=== PATIENT | male | born 1965 | race Caucasian/White ===

== ENCOUNTER 2021-02-22 14:44 | IRF | payer MEDICARE, SELFPAY ==
--- NOTE | ~2021-02-22 | MR_ITS ---
EXAMINATION: MR brain/brain stem wo/w con DATE: 03/03/2021 10:49 INDICATION: Stroke. Left facial weakness. TECHNIQUE: Magnetic resonance imaging (MRI) of the brain and brainstem was performed without and with 17 mL MultiHance intravenous contrast. Sequences included sagittal and axial T1-weighted FSE, axial diffusion-weighted FS EPI, axial T2*-weighted GRE, axial T2-weighted FLAIR Propeller, and axial T2-we ighted Propeller. Postcontrast sequences included axial and coronal T1-weighted FSE. Apparent diffusi on coefficient (ADC) maps were created. COMPARISON: Head CT 03/02/2021 FINDINGS: There are areas of increased T2-weighted signal intensity and contrast enhancement involvin g left temporal lobe and the left basal ganglia. There is focal decreased T2*weighted signal intensit y in the left lentiform nucleus, consistent with microhemorrhage. There is a small area of increased T2-weighted signal intensity and contrast enhancement in posterior right frontal lobe. These findings are consistent with subacute infarcts. There are scattered areas of nonspecific increased T2-weighte d signal intensity in the cerebral white matter, which is within normal limits for the patient's age. The ventricles are normal in size. There is near complete opacification of the left ethmoid sinuses. There is complete opacification of left maxillary sinus. The orbits are normal. The mastoid air cell s are normal. IMPRESSION: 1. Subacute infarcts involving the left temporal lobe, left basal ganglia, and posterior right fronta l lobe with small area of microhemorrhage in the left lentiform nucleus. Reviewed, dictated and finalized at location B. IMPRESSION: 1. Subacute infarcts involving the left temporal lobe, left basal ganglia, and posterior right frontal lobe with small area of microhemorrhage in the left ana tiform nucleus.
--- NOTE | ~2021-02-22 | XR_ITS ---
XR abdomen/kub 1V DATE: 02/22/2021 22:40 INDICATION: Nausea and vomiting TECHNIQUE: 2 portable supine AP views COMPARISON: None FINDINGS: Status post bilateral total hip arthroplasty. There is no evidence of bowel obstruction. No apparent intraperitoneal free air. The psoas shadows are intact. No visceromegaly or significant abnormal abdominal or pelvic calcificat ion is noted. IMPRESSION: Nonspecific abdomen; no evidence of bowel obstruction Reviewed, dictated and finalized at Location A. Reviewed, dictated and finalized at location A.
--- NOTE | ~2021-02-22 | CT_ITS ---
EXAMINATION: CTA brain DATE: 03/03/2021 13:15 INDICATION: Stroke. TECHNIQUE: Computed tomographic angiography (CTA) of the head was performed without and with 100 mL O mnipaque-350 intravenous contrast. Automated exposure control and iterative reconstruction technique were employed. The dose-length product was 935.90 mGy-cm. Maximum intensity projection 3D reconstruc tions were created. Volume-rendered 3D reconstructions of the intracranial arteries were created by t technologist on a separate workstation. COMPARISON: Head CT 03/02/2021 FINDINGS: There are low-attenuation infarcts involving the left temporal lobe, left basal ganglia, an d posterior right frontal lobe. A small area of density equal to keating matter in left lentiform nucleu s correlates with hemorrhage by MRI. There is no abnormal mass lesion. The ventricles are normal in s ize. The orbits are normal. There is mucosal thickening in the paranasal sinuses including complete o pacification of left maxillary sinus and the anterior left ethmoid sinuses. The orbits are normal. Th e mastoid air cells are normal. Left vertebral artery is dominant. There is no significant stenosis o f basilar artery or the posterior cerebral arteries. The posterior communicating arteries are normal. There is no significant stenosis of right internal carotid artery. There is total occlusion of left internal carotid artery with reconstitution in the cavernous segment. There is no significant stenosi s of the anterior or middle cerebral arteries. Anterior communicating artery is normal. There is no a neurysm. IMPRESSION: 1. Subacute infarcts involving the left temporal lobe, left basal ganglia, and posterior right fronta l lobe. Small area of subacute hemorrhage in infarct in the left lentiform nucleus. 2. Total occlusion of left internal carotid artery with reconstitution in the cavernous segment. Reviewed, dictated and finalized at location B. IMPRESSION: 1. Subacute infarcts involving the left temporal lobe, left basal ganglia, and posterior right frontal lobe. Small area of subacute hemorrhage in infarct in t he left lentiform nucleus. 2. Total occlusion of left internal carotid artery with reconstitution in the c avernous segment.
--- NOTE | ~2021-02-22 | XR_ITS ---
XR shoulder RT min 2V DATE: 02/23/2021 17:47 INDICATION: Right shoulder pain TECHNIQUE: 4 views COMPARISON: None FINDINGS: There is postsurgical change from right glenohumeral joint replacement. There is evidence o f rotator cuff atrophy or tear. No recent fracture or dislocation. No periosteal reaction or bone destruction or abnormal soft tissue calcification. IMPRESSION: Right glenohumeral joint replacement Probable rotator cuff atrophy or tear Reviewed, dictated and finalized at location A.
--- NOTE | ~2021-02-22 | CT_ITS ---
EXAMINATION: CT brain wo con DATE: 03/02/2021 12:02 INDICATION: Stroke with change in mental status. Left eye closed. TECHNIQUE: Computed tomography (CT) of the head was performed without intravenous contrast. Sagittal and coronal reconstructions were performed. The mA was adjusted according to patient size. Iterative reconstruction technique was employed. The dose-length product was 529.67 mGy-cm. COMPARISON: None FINDINGS: There is subtle asymmetric decreased attenuation of the left lentiform nucleus suspicious for age ind eterminate infarct. Additional more prominent decreased periventricular white matter hypoattenuation in the left temporal parietal region likely sequela of chronic small vessel ischemic disease. No acut e intracranial hemorrhage or abnormal extra axial fluid collection. Ventricles are normal and symmetr ic. No mass/mass effect. Prominent mucosal thickening in the visualized anterior left ethmoid air courtney ls. The orbits and mastoid air cells are normal. IMPRESSION: 1. Asymmetric subtle decreased attenuation of the left lentiform nucleus suspicious for infarct which could be acute. Dr. Law discussed these findings with Dr. Stanford at 12:[address] Inman at 12:12 PM. Reviewed, dictated and finalized at location A. IMPRESSION: 1. Asymmetric subtle decreased attenuation of the left lentiform nucleus suspic ious for infarct which could be acute. Dr. Law discussed these findings [facility] Dr. Stanford at 12:[address] Inman at 12:12 PM.
[2021-02-22 14:25] VITALS: BP 189/78; PULSE 70; RESP 18; TEMP 36.4; O2SAT 99
--- NOTE | 2021-02-22 15:21 | WPDREHABHP ---
H&P: HPI History of Present Illness Date/Time: 02/22/21 15:21 Chief Complaint: Left MCA infarct with right hemiplegia, dysarthria, aphasia, Narrative: HISTORY OF PRESENT ILLNESS: The patient's primary rehab impairment category is 0 1 stroke 01.2 right body involvement ( left brain) The etiologic diagnosis is left middle cerebral artery infarct I saw this patient [id number] on 02/22/2021 The patient is a 55-year-old male with past medical history of hyperlipidemia, anxiety, chronic pain, bilateral shoulder replacements, bilateral total hip replacements who presented to an outside hospital on 02/17/2021 with right-sided facial droop, right-sided weakness, and slurred speech. Initial NIH SS was 7. CT of the head showed hyperdense MCA. Patient was administered tPA and transferred to [facility] for further care. On arrival to [facility] NIHSS was 18. Repeat CT of the head showed a re- demonstrated left hyperdense MCA. CTA of the head and neck revealed a left ICA and the left M 1 occlusion. The patient underwent mechanical thrombectomy with TI CI 2B recannulization performed by Dr. Phan Contreras.. The patient was noted to have a left ICA stenosis likely to be the origin of his occlusion. A lleft ICA dissection occurred during the procedure. Patient was given aspirin 300 mg x 1 MRI was obtained that showed a left MCA territory diffusion restriction along with punctate right hemispheric areas of diffusion restriction. No hemorrhage noted. Patient was noted to have a left fluid collection to the maxillary sinus and ENT follow-up with Dr. Menezes on 03/09/2021 at for evaluation of sinusitis office #[id number] Therapy was initiated at the acute care facility and the patient transferred to us from [facility] on 02/22/21 COVID: The patient has not traveled outside the [place] or had contact with someone who is ill that his travel outside the [place] in the past 21 days. Patient has not traveled to an area of the [place] that is experiencing known transmission of the Coronavirus and has not had close personal contact with anyone that has had COVID. The patient does not have a fever nor experiencing lower respiratory illness symptoms. The patient had a negative COVID test on 02/21/2021 FALLS OR SURGERIES: The patient has had [no] major surgeries in the 100 days prior to admission. They had [no] falls in the past year. They had [no] falls with injury in the past year. PRIOR LEVEL OF FUNCTION: Eating was INDEPENDENT Oral Care was [INDEPENDENT] Toileting Hygiene was [INDEPENDENT] Shower/Bathing was [INDEPENDENT] Upper Body Dressing was [INDEPENDENT] Lower Body Dressing was [INDEPENDENT] Donning/Blue Footwear was [INDEPENDENT] Rolling Left and Right was [INDEPENDENT] Sit to Lying was [INDEPENDENT] Lying to Sitting was [INDEPENDENT] Sit to Stand was [INDEPENDENT] Bed to Chair Transfers was [INDEPENDENT] Toilet Transfers was [INDEPENDENT] Walking was [INDEPENDENT] [>500 feet] with [NO DEVICE] Wheelchair Mobility was [NOT APPLICABLE PRIOR TO ADMISSION] Stairs were [INDEPENDENT] CURRENT LEVEL OF FUNCTION: Eating was [SET UP ONLY] Oral Care was partial to moderate assistance Toileting Hygiene was partial to moderate assist Shower/Bathing was partial to moderate assist Upper Body Dressing was substantial to maximal assistance[] Lower Body Dressing was partial to moderate assistance Donning/Blue Footwear was partial to moderate assistance Rolling Left and Right was supervision or touching assist Sit to Lying was supervision or touching assist Lying to Sitting was supervision or touching assist Sit to Stand was partial to moderate assistance Bed to Chair Transfers were partial to moderate assist Toilet Transfers were partial to moderate assist Walking was partial to moderate assist 80 ft using a roller walker Wheelchair Mobility was not tested Stairs were not tested GOALS: Our the
--- NOTE | 2021-02-22 16:31 | ADMGEN ---
This patient, Sha Mills, was admitted to [facility] Room 220-02. Patient/family oriented to hospital policies and general routines including ID bracelet, bed and alarms, visiting hours, pain management, procedures, bathroom and other care routines, personal items, smoking policy, room service/diet, and visiting hours. Information on how to activate the Rapid Response Team has been discussed. Patient/Family are encouraged to report perceived risks to care and to ask questions if they do not understand what they are told or what they should do.
[2021-02-22 16:41] LABS: Basophils Absolute Auto 0.1 K/mm3 (0.0-0.1); Basophils Percent Auto 0.4 % (0.2-1.2); Eosinophils Absolute Auto 0.1 K/mm3 (0-0.3); Eosinophils Percent Auto 0.9 % (0-4.4); Hematocrit 52.8 % (42.0-52.0); Hemoglobin 17.6 g/dL (14.0-18.0); Immature Granulocyte Absolute 0.09 K/mm3 (0.00-0.031); Immature Granulocyte Percent A 0.6 % (0-0.5); Lymphocytes Absolute Auto 1.64 K/mm3 (0.9-3.2); Lymphocytes Percent Auto 10.4 % (18.3-44.2); Mean Corpuscular HGB Conc 33.3 g/dl (32-36); Mean Corpuscular Hemoglobin 29.4 pg (26-34); Mean Corpuscular Volume 88.1 fl (80-100); Mean Platelet Volume 9.8 fl (7.4-10.4); Monocytes Absolute Auto 1.4 K/mm3 (0.1-0.6); Monocytes Percent Auto 9.1 % (2.6-8.5); Neutrophils Absolute Auto 12.4 K/mm3 (1.3-6.7); Neutrophils Percent Auto 78.6 % (45.5-73.1); Platelet Count Result 327 k/mm3 (150-375); Red Blood Count 5.99 M/mm3 (4.6-6.20); Red Cell Distribution Width 13.3 % (11.5-14.5); White Blood Count 15.8 K/mm3 (4.5-10.0)
[2021-02-22] MEDS: GABAPENTIN 300 MG CAPSULE PO (18:28)
[2021-02-22] MEDS: ATORVASTATIN 40 MG TABLET 80 MG PO (21:14)
[2021-02-22] MEDS: DOCUSATE SODIUM 100 MG CAPSULE PO (21:15)
[2021-02-22] MEDS: HEPARIN SODIUM 5,000 UNITS/ML VIAL 5000 UNITS SUB-Q (21:15)
[2021-02-22 21:42] VITALS: BP 150/77; PULSE 95; RESP 16; TEMP 37.1; O2SAT 97
--- NOTE | 2021-02-22 22:37 | PC.NURSE ---
pt was having hiccups all day, was heard dry heaving down the ness and had vomited a small amount. Doctor was informed.
[2021-02-22 22:57] LABS: Hemoglobin 17.8 g/dL (14.0-18.0); Mean Corpuscular HGB Conc 34.2 g/dl (32-36); Mean Corpuscular Hemoglobin 29.5 pg (26-34); Mean Corpuscular Volume 86.2 fl (80-100); Mean Platelet Volume 9.7 fl (7.4-10.4); Platelet Count Result 386 k/mm3 (150-375); Red Blood Count 6.03 M/mm3 (4.6-6.20); Red Cell Distribution Width 13.3 % (11.5-14.5); White Blood Count 17.3 K/mm3 (4.5-10.0)
[2021-02-22] MEDS: ONDANSETRON HCL ODT 4 MG TABLET PO (23:12)
[2021-02-22] MEDS: BISACODYL 10 MG SUPPOSITORY RECTAL (23:12)
[2021-02-22 23:54] LABS: Alanine Aminotransferase 34 U/L (4-50); Albumin Level 4.6 g/dL (3.5-5.1); Alkaline Phosphatase 70 U/L (38-126); Anion Gap 9 mmol/L (8-16); Aspartate Amino Transferase 28 U/L (17-59); Bilirubin,Total 0.9 mg/dL (0.2-1.3); Blood Urea Nitrogen 27 mg/dL (9-20); Calcium 9.4 mg/dL (8.4-10.2); Carbon Dioxide 24 mmol/L (22-30); Chloride 102 mmol/L (98-107); Estimated Glomerular Filt Rate > 60; Glucose 164 mg/dL (75-110); Potassium 3.6 mmol/L (3.4-5.0); Sodium 135 mmol/L (137-145)
[2021-02-23 04:49] LABS: Basophils Absolute Auto 0.1 K/mm3 (0.0-0.1); Basophils Percent Auto 0.3 % (0.2-1.2); Eosinophils Absolute Auto 0.1 K/mm3 (0-0.3); Eosinophils Percent Auto 0.5 % (0-4.4); Hematocrit 52.7 % (42.0-52.0); Hemoglobin 17.5 g/dL (14.0-18.0); Immature Granulocyte Absolute 0.11 K/mm3 (0.00-0.031); Immature Granulocyte Percent A 0.7 % (0-0.5); Lymphocytes Absolute Auto 1.78 K/mm3 (0.9-3.2); Lymphocytes Percent Auto 11.7 % (18.3-44.2); Mean Corpuscular HGB Conc 33.2 g/dl (32-36); Mean Corpuscular Hemoglobin 29.2 pg (26-34); Mean Platelet Volume 9.9 fl (7.4-10.4); Monocytes Absolute Auto 1.8 K/mm3 (0.1-0.6); Monocytes Percent Auto 11.5 % (2.6-8.5); Neutrophils Absolute Auto 11.4 K/mm3 (1.3-6.7); Neutrophils Percent Auto 75.3 % (45.5-73.1); Platelet Count Result 371 k/mm3 (150-375); Red Blood Count 5.99 M/mm3 (4.6-6.20); Red Cell Distribution Width 13.2 % (11.5-14.5); White Blood Count 15.2 K/mm3 (4.5-10.0)
[2021-02-23 05:11] LABS: Alanine Aminotransferase 30 U/L (4-50); Albumin Level 4.4 g/dL (3.5-5.1); Alkaline Phosphatase 63 U/L (38-126); Anion Gap 9 mmol/L (8-16); Aspartate Amino Transferase 29 U/L (17-59); Bilirubin,Total 0.8 mg/dL (0.2-1.3); Blood Urea Nitrogen 27 mg/dL (9-20); Calcium 8.9 mg/dL (8.4-10.2); Carbon Dioxide 24 mmol/L (22-30); Chloride 105 mmol/L (98-107); Estimated Glomerular Filt Rate > 60; Glucose 133 mg/dL (75-110); Potassium 3.9 mmol/L (3.4-5.0); Sodium 138 mmol/L (137-145)
[2021-02-23 06:00] VITALS: BP 130/90; PULSE 96; RESP 18; TEMP 36.7; O2SAT 96
[2021-02-23] MEDS: VENLAFAXINE HCL XR 75 MG CAP.ER.24H PO (09:57)
[2021-02-23] MEDS: DOCUSATE SODIUM 100 MG CAPSULE PO ×2 (09:57→20:29)
[2021-02-23] MEDS: lisinopriL 20 MG TABLET 40 MG PO (09:57)
[2021-02-23] MEDS: ASPIRIN 81 MG CHEWABLE TABLET PO (09:57)
[2021-02-23] MEDS: GABAPENTIN 300 MG CAPSULE PO ×3 (09:57→16:18)
[2021-02-23] MEDS: HEPARIN SODIUM 5,000 UNITS/ML VIAL 5000 UNITS SUB-Q ×2 (09:57→20:31)
[2021-02-23 11:10] VITALS: BMI 28.9
[2021-02-23] MEDS: ACETAMINOPHEN 325 MG TABLET 650 MG PO (12:24)
--- NOTE | 2021-02-23 12:38 | PCSTNOTE ---
Please refer to the Bedside Swallow Evaluation in the EMR. Please note, silent aspiration cannot be ruled out at bedside.
[2021-02-23 14:00] VITALS: BP 118/66; PULSE 84; RESP 20; TEMP 37; O2SAT 98
--- NOTE | 2021-02-23 15:40 | WPDNEURORHBP ---
Subjective Date/time seen: 02/23/21 15:40 Interval history: Left MCA infarct with right hemiplegia, dysarthria, aphasia, The patient is a 55-year-old male with past medical history of hyperlipidemia, anxiety, chronic pain, bilateral shoulder replacements, bilateral total hip replacements who presented to an outside hospital on 02/17/2021 with right-sided facial droop, right-sided weakness, and slurred speech. Initial NIHSS was 7. CT of the head showed hyperdense MCA. Patient was administered tPA and transferred to [facility] for further care. On arrival to [facility] NIHSS was 18. Repeat CT of the head showed a re- demonstrated left hyperdense MCA. CTA of the head and neck revealed a left ICA and the left M 1 occlusion. The patient underwent mechanical thrombectomy with TICI 2B recannulization performed by Dr. Phan Contreras.. The patient was noted to have a left ICA stenosis likely to be the origin of his occlusion. A lleft ICA dissection occurred during the procedure. Patient was given aspirin 300 mg x 1 MRI was obtained that showed a left MCA territory diffusion restriction along with punctate right hemispheric areas of diffusion restriction. No hemorrhage noted. Patient was noted to have a left fluid collection to the maxillary sinus and ENT follow-up with Dr. Menezes on 03/09/2021 at for evaluation of sinusitis office #[id number] [id number] Therapy was initiated at the acute care facility and the patient transferred to us from [facility] on 02/22/21 Patient complained of nausea and Zofran was given last night. Patient has no further complaints of nausea. A bowel program was initiated last night and today. No BM as of this note. Review of Systems Review of Systems: ROS unobtainable: Yes unobtainable due to mental status ( patient has significant aphasia and responses are not accurate) Functional Status Ambulation Ability Ability to Ambulate 10 Feet: Contact Guard Ability to Ambulate 50 Feet With 2 Turns: Contact Guard Ambulation Assistive Devices: None and Cane, Small Base Quad Transfers Ability Ability to Transfer In/Out of Chair: Contact Guard Exam Narrative: Exam Narrative: Left eye ptosis noted. External ocular muscles are intact. Neck is supple. Tongue slightly deviates to the right. Heart rate and rhythm is regular. Lungs are clear to auscultation. Abdomen is obese. Positive bowel sounds are noted. Left upper and left lower extremity strength are 5/5. Right upper extremity strength is 4/5 with motor apraxia and fine motor dexterity deficits. Left lower extremity strength is 4/5. Mood is bright. Word finding deficits noted. Objective Data Vital Signs Vital Signs: Vital Signs - 24 hr 02/22/21 21:42 02/23/21 06:00 02/23/21 14:00 Temperature 37.1 C 36.7 C 37.0 C Pulse Rate 95 96 84 Respiratory Rate 16 18 20 Blood Pressure 150/77 H 130/90 118/66 Pulse Oximetry 97 96 98 Intake/Output Intake/Output: Intake & Output 02/20/21 02/21/21 02/22/21 02/23/21 23:59 23:59 23:59 23:59 Intake Total 50 480 Balance 50 480 Meds/Results Medications: Active Medications Generic Name Dose Route Start Last Admin Trade Name Freq PRN Reason Stop Dose Admin Acetaminophen 650 mg 02/22/21 15:19 02/23/21 12:24 Acetaminophen 325 Mg Tablet PO 650 mg Q4H PRN Administration Mild Pain (1-3) or Fever Aspirin 81 mg 02/23/21 09:00 02/23/21 09:57 Aspirin 81 Mg Chewable Tablet PO 03/25/21 09:01 81 mg DAILY GENARO Administration Atorvastatin Calcium 80 mg 02/22/21 21:00 02/22/21 21:14 Atorvastatin 40 Mg Tablet PO 80 mg HS GENARO Administration Bisacodyl 10 mg 02/22/21 22:31 02/22/21 23:12 Bisacodyl 10 Mg Suppository RECTAL 10 mg QAM PRN Administration Constipation Docusate Sodium 100 mg 02/22/21 21:00 02/23/21 09:57 Docusate Sodium 100 Mg Capsule PO 100 mg Q12HR GENARO Administration Gabapentin 300 mg 02/22/21 17:00
[2021-02-23] MEDS: ACETAMINOPHEN 500 MG TABLET 1000 MG PO (16:18)
[2021-02-23] MEDS: BISACODYL 5 MG TABLET EC PO (16:19)
[2021-02-23] MEDS: ATORVASTATIN 40 MG TABLET 80 MG PO (20:29)
[2021-02-23 22:00] VITALS: BP 152/81; PULSE 89; RESP 20; TEMP 36.2; O2SAT 98
[2021-02-24 06:00] VITALS: BP 147/88; PULSE 84; RESP 18; TEMP 36.3; O2SAT 96
--- NOTE | 2021-02-24 09:41 | WPDNEURORHBP ---
Subjective Date/time seen: 02/24/21 09:41 Interval history: Left MCA infarct with right hemiplegia, dysarthria, aphasia, The patient is a 55-year-old male with past medical history of hyperlipidemia, anxiety, chronic pain, bilateral shoulder replacements, bilateral total hip replacements who presented to an outside hospital on 02/17/2021 with right-sided facial droop, right-sided weakness, and slurred speech. Initial NIHSS was 7. CT of the head showed hyperdense MCA. Patient was administered tPA and transferred to [facility] for further care. On arrival to [facility] NIHSS was 18. Repeat CT of the head showed a re- demonstrated left hyperdense MCA. CTA of the head and neck revealed a left ICA and the left M 1 occlusion. The patient underwent mechanical thrombectomy with TICI 2B recannulization performed by Dr. Phan Contreras.. The patient was noted to have a left ICA stenosis likely to be the origin of his occlusion. A lleft ICA dissection occurred during the procedure. Patient was given aspirin 300 mg x 1 MRI was obtained that showed a left MCA territory diffusion restriction along with punctate right hemispheric areas of diffusion restriction. No hemorrhage noted. Patient was noted to have a left fluid collection to the maxillary sinus and ENT follow-up with Dr. Menezes on 03/09/2021 at 11 for evaluation of sinusitis office #[id number] [id number] Therapy was initiated at the acute care facility and the patient transferred to us from [facility] on 02/22/21 Patient is seen in room and during PT session in the gym. . Patient had small to moderate BM last night. Patient states he is feeling better. Patient complaining of R shoulder pain but it is better from yesterday. Review of Systems Review of Systems: Narrative: Patient states that he is feeling better. Right shoulder pain noted Functional Status Ambulation Ability Ability to Ambulate 10 Feet: Contact Guard Ability to Ambulate 50 Feet With 2 Turns: Contact Guard Ambulation Assistive Devices: None and Cane, Small Base Quad Transfers Ability Ability to Transfer In/Out of Chair: Contact Guard Exam Narrative: Exam Narrative: Left eye ptosis noted. External ocular muscles are intact. Neck is supple. Tongue slightly deviates to the right. Heart rate and rhythm is regular. Lungs are clear to auscultation. Abdomen is obese. Positive bowel sounds are noted. Left upper and left lower extremity strength are 5/5. Right upper extremity strength is 4/5 with motor apraxia and fine motor dexterity deficits. Left lower extremity strength is 4/5. Mood is bright. Word finding deficits noted . Patient's speech is improving and is talking in 3-4 word sentences. Limp is noted to RLE Objective Data Vital Signs Vital Signs: Vital Signs - 24 hr 02/23/21 14:00 02/23/21 22:00 02/24/21 06:00 Temperature 37.0 C 36.2 C L 36.3 C L Pulse Rate 84 89 84 Respiratory Rate 20 20 18 Blood Pressure 118/66 152/81 H 147/88 H Pulse Oximetry 98 98 96 Intake/Output Intake/Output: Intake & Output 02/21/21 02/22/21 02/23/21 02/24/21 23:59 23:59 23:59 23:59 Intake Total 50 720 240 Balance 50 720 240 Meds/Results Medications: Active Medications Generic Name Dose Route Start Last Admin Trade Name Freq PRN Reason Stop Dose Admin Acetaminophen 1,000 mg 02/24/21 08:00 Acetaminophen 500 Mg Tablet PO 0800,1200 [facility] Acetaminophen 1,000 mg 02/23/21 16:12 Acetaminophen 500 Mg Tablet PO Q6H PRN Mild Pain (1-3) or Fever Aspirin 81 mg 02/23/21 09:00 02/23/21 09:57 Aspirin 81 Mg Chewable Tablet PO 03/25/21 09:01 81 mg DAILY GENARO Administration Atorvastatin Calcium 80 mg 02/22/21 21:00 02/23/21 20:29 Atorvastatin 40 Mg Tablet PO 80 mg HS GENARO Administration Bisacodyl 10 mg 02/22/21 22:31 02/22/21 23:12 Bisacodyl 10 Mg Suppository RECTAL 10 mg QAM PRN Administration Constipation Docusate Sodium 100
[2021-02-24] MEDS: HEPARIN SODIUM 5,000 UNITS/ML VIAL 5000 UNITS SUB-Q ×2 (09:56→20:11)
[2021-02-24] MEDS: ASPIRIN 81 MG CHEWABLE TABLET PO (09:56)
[2021-02-24] MEDS: ACETAMINOPHEN 500 MG TABLET 1000 MG PO ×2 (09:56→12:26)
[2021-02-24] MEDS: VENLAFAXINE HCL XR 75 MG CAP.ER.24H PO (09:56)
[2021-02-24] MEDS: lisinopriL 20 MG TABLET 40 MG PO (09:56)
[2021-02-24] MEDS: polyethylene glycoL 3350 17 GM POWD.PACK PO (09:57)
[2021-02-24] MEDS: GABAPENTIN 300 MG CAPSULE PO ×3 (09:57→17:05)
[2021-02-24] MEDS: DOCUSATE SODIUM 100 MG CAPSULE PO ×2 (09:57→20:11)
[2021-02-24 14:00] VITALS: BP 119/71; PULSE 84; RESP 24; TEMP 36.9; O2SAT 95
[2021-02-24] MEDS: ATORVASTATIN 40 MG TABLET 80 MG PO (20:11)
[2021-02-24 21:47] VITALS: BP 132/69; PULSE 73; RESP 16; TEMP 36.4; O2SAT 96
[2021-02-25 05:32] VITALS: BP 114/73; PULSE 62; RESP 16; TEMP 36.2; O2SAT 100
--- NOTE | 2021-02-25 08:43 | WPDNEURORHBP ---
Subjective Date/time seen: 02/25/21 08:43 Interval history: Left MCA infarct with right hemiplegia, dysarthria, aphasia, The patient is a 55-year-old male with past medical history of hyperlipidemia, anxiety, chronic pain, bilateral shoulder replacements, bilateral total hip replacements who presented to an outside hospital on 02/17/2021 with right-sided facial droop, right-sided weakness, and slurred speech. Initial NIHSS was 7. CT of the head showed hyperdense MCA. Patient was administered tPA and transferred to [facility] for further care. On arrival to [facility] NIHSS was 18. Repeat CT of the head showed a re- demonstrated left hyperdense MCA. CTA of the head and neck revealed a left ICA and the left M 1 occlusion. The patient underwent mechanical thrombectomy with TICI 2B recannulization performed by Dr. Phan Contreras.. The patient was noted to have a left ICA stenosis likely to be the origin of his occlusion. A lleft ICA dissection occurred during the procedure. Patient was given aspirin 300 mg x 1 MRI was obtained that showed a left MCA territory diffusion restriction along with punctate right hemispheric areas of diffusion restriction. No hemorrhage noted. Patient was noted to have a left fluid collection to the maxillary sinus and ENT follow-up with Dr. Menezes on 03/09/2021 at for evaluation of sinusitis office #[id number] [id number] Therapy was initiated at the acute care facility and the patient transferred to us from [facility] on 02/22/21 Patient is seen in room . Patient is requesting a shower.Patient complaining of R shoulder pain. Review of Systems Review of Systems: All systems reviewed & are unremarkable except as noted in HPI and below Functional Status Ambulation Ability Ability to Ambulate 10 Feet: Contact Guard Ability to Ambulate 50 Feet With 2 Turns: Contact Guard Ability to Ambulate 150 Feet: Contact Guard Ambulation Assistive Devices: None and Cane, Small Base Quad Transfers Ability Ability to Transfer In/Out of Chair: Contact Guard Exam Narrative: Exam Narrative: Left eye ptosis noted. External ocular muscles are intact. Neck is supple. Heart rate and rhythm is regular. Lungs are clear to auscultation. Abdomen is obese. Positive bowel sounds are noted. Left upper and left lower extremity strength are 5/5. Right upper extremity strength is 4/5 with motor apraxia and fine motor dexterity deficits. Left lower extremity strength is 4/5. . Word finding deficits noted . Patient's speech is improving and is talking in 3-4 word sentences. Objective Data Vital Signs Vital Signs: Vital Signs - 24 hr 02/24/21 14:00 02/24/21 21:47 02/25/21 05:32 Temperature 36.9 C 36.4 C 36.2 C L Pulse Rate 84 73 62 Respiratory Rate 24 H 16 16 Blood Pressure 119/71 132/69 114/73 Pulse Oximetry 95 96 100 Intake/Output Intake/Output: Intake & Output 02/22/21 02/23/21 02/24/21 02/25/21 23:59 23:59 23:59 23:59 Intake Total 50 720 460 Balance 50 720 460 Meds/Results Medications: Active Medications Generic Name Dose Route Start Last Admin Trade Name Freq PRN Reason Stop Dose Admin Acetaminophen 1,000 mg 02/24/21 08:00 02/24/21 12:26 Acetaminophen 500 Mg Tablet PO 1,000 mg 0800,1200 GENARO Administration Acetaminophen 1,000 mg 02/23/21 16:12 Acetaminophen 500 Mg Tablet PO Q6H PRN Mild Pain (1-3) or Fever Aspirin 81 mg 02/23/21 09:00 02/24/21 09:56 Aspirin 81 Mg Chewable Tablet PO 03/25/21 09:01 81 mg DAILY GENARO Administration Atorvastatin Calcium 80 mg 02/22/21 21:00 02/24/21 20:11 Atorvastatin 40 Mg Tablet PO 80 mg HS GENARO Administration Bisacodyl 10 mg 02/22/21 22:31 02/22/21 23:12 Bisacodyl 10 Mg Suppository RECTAL 10 mg QAM PRN Administration Constipation Docusate Sodium 100 mg 02/22/21 21:00 02/24/21 20:11 Docusate Sodium 100 Mg Capsule PO 100 mg Q12HR GENARO Administration Gabap
[2021-02-25] MEDS: ASPIRIN 81 MG CHEWABLE TABLET PO (08:53)
[2021-02-25] MEDS: ACETAMINOPHEN 500 MG TABLET 1000 MG PO ×2 (08:53→13:30)
[2021-02-25] MEDS: polyethylene glycoL 3350 17 GM POWD.PACK PO (08:54)
[2021-02-25] MEDS: VENLAFAXINE HCL XR 75 MG CAP.ER.24H PO (08:54)
[2021-02-25] MEDS: GABAPENTIN 300 MG CAPSULE PO ×3 (08:54→17:26)
[2021-02-25] MEDS: HEPARIN SODIUM 5,000 UNITS/ML VIAL 5000 UNITS SUB-Q ×2 (08:54→20:19)
[2021-02-25] MEDS: DOCUSATE SODIUM 100 MG CAPSULE PO ×2 (08:54→20:19)
[2021-02-25] MEDS: lisinopriL 20 MG TABLET 40 MG PO (08:54)
[2021-02-25 14:00] VITALS: BP 121/69; PULSE 78; RESP 18; TEMP 36.2; O2SAT 98
[2021-02-25] MEDS: ATORVASTATIN 40 MG TABLET 80 MG PO (20:18)
[2021-02-25 21:29] VITALS: BP 134/68; PULSE 66; RESP 16; TEMP 36.3; O2SAT 97
[2021-02-26 05:33] VITALS: BP 123/67; PULSE 73; RESP 16; TEMP 36; O2SAT 100
[2021-02-26] MEDS: ASPIRIN 81 MG CHEWABLE TABLET PO (08:28)
[2021-02-26] MEDS: GABAPENTIN 300 MG CAPSULE PO ×3 (08:28→17:11)
[2021-02-26] MEDS: ACETAMINOPHEN 500 MG TABLET 1000 MG PO ×3 (08:28→20:58)
[2021-02-26] MEDS: DOCUSATE SODIUM 100 MG CAPSULE PO ×2 (08:28→21:00)
[2021-02-26] MEDS: VENLAFAXINE HCL XR 75 MG CAP.ER.24H PO (08:29)
[2021-02-26] MEDS: HEPARIN SODIUM 5,000 UNITS/ML VIAL 5000 UNITS SUB-Q ×2 (08:29→20:56)
[2021-02-26] MEDS: polyethylene glycoL 3350 17 GM POWD.PACK PO (08:29)
[2021-02-26] MEDS: lisinopriL 20 MG TABLET 40 MG PO (08:29)
--- NOTE | 2021-02-26 09:04 | WPDNEURORHBP ---
Subjective Date/time seen: 02/26/21 09:04 Interval history: Left MCA infarct with right hemiplegia, dysarthria, aphasia, The patient is a 55-year-old male with past medical history of hyperlipidemia, anxiety, chronic pain, bilateral shoulder replacements, bilateral total hip replacements who presented to an outside hospital on 02/17/2021 with right-sided facial droop, right-sided weakness, and slurred speech. Initial NIHSS was 7. CT of the head showed hyperdense MCA. Patient was administered tPA and transferred to [facility] for further care. On arrival to [facility] NIHSS was 18. Repeat CT of the head showed a re- demonstrated left hyperdense MCA. CTA of the head and neck revealed a left ICA and the left M 1 occlusion. The patient underwent mechanical thrombectomy with TICI 2B recannulization performed by Dr. Phan Contreras.. The patient was noted to have a left ICA stenosis likely to be the origin of his occlusion. A lleft ICA dissection occurred during the procedure. Patient was given aspirin 300 mg x 1 MRI was obtained that showed a left MCA territory diffusion restriction along with punctate right hemispheric areas of diffusion restriction. No hemorrhage noted. Patient was noted to have a left fluid collection to the maxillary sinus and ENT follow-up with Dr. Menezes on 03/09/2021 at 11 for evaluation of sinusitis office #[phone] Therapy was initiated at the acute care facility and the patient transferred to us from [facility] on 02/22/21 Patient complaining of R shoulder pain. Patient needs reminders that the CVA has affected the RUE. . Review of Systems Review of Systems: All systems reviewed & are unremarkable except as noted in HPI and below ROS unobtainable: Yes unobtainable due to mental status ( patient has significant aphasia and responses are not accurate) Functional Status Ambulation Ability Ability to Ambulate 10 Feet: Standby Assistance Ability to Ambulate 50 Feet With 2 Turns: Standby Assistance Ability to Ambulate 150 Feet: Standby Assistance Ambulation Assistive Devices: None Transfers Ability Ability to Transfer In/Out of Chair: Independent Exam Narrative: Exam Narrative: Left eye ptosis noted. External ocular muscles are intact. Neck is supple. Heart rate and rhythm is regular. Lungs are clear to auscultation. Abdomen is obese. Positive bowel sounds are noted. Left upper and left lower extremity strength are 5/5. Right upper extremity strength is 3+ and elicits pain with motion with fine motor dexterity deficits. Left lower extremity strength is 4/5. . Word finding deficits noted . Patient's speech is improving and is talking in 3-4 word sentences. Objective Data Vital Signs Vital Signs: Vital Signs - 24 hr 02/25/21 14:00 02/25/21 21:29 02/26/21 05:33 Temperature 36.2 C L 36.3 C L 36.0 C L Pulse Rate 78 66 73 Respiratory Rate 18 16 16 Blood Pressure 121/69 134/68 123/67 Pulse Oximetry 98 97 100 Intake/Output Intake/Output: Intake & Output 02/23/21 02/24/21 02/25/21 02/26/21 23:59 23:59 23:59 23:59 Intake Total 966 561 6165 240 Balance 565 794 8646 240 Meds/Results Medications: Active Medications Generic Name Dose Route Start Last Admin Trade Name Freq PRN Reason Stop Dose Admin Acetaminophen 1,000 mg 02/24/21 08:00 02/26/21 08:28 Acetaminophen 500 Mg Tablet PO 1,000 mg 0800,1200 GENARO Administration Acetaminophen 1,000 mg 02/23/21 16:12 Acetaminophen 500 Mg Tablet PO Q6H PRN Mild Pain (1-3) or Fever Aspirin 81 mg 02/23/21 09:00 02/26/21 08:28 Aspirin 81 Mg Chewable Tablet PO 03/25/21 09:01 81 mg DAILY GENARO Administration Atorvastatin Calcium 80 mg 02/22/21 21:00 02/25/21 20:18 Atorvastatin 40 Mg Tablet PO 80 mg HS GENARO Administration Bisacodyl 10 mg 02/22/21 22:31 02/22/21 23:12 Bisacodyl 10 Mg Suppository RECTAL 10 mg QAM PRN Administration Constipation Docu
[2021-02-26 10:09] LABS: Basophils Absolute Auto 0.1 K/mm3 (0.0-0.1); Basophils Percent Auto 0.6 % (0.2-1.2); Eosinophils Absolute Auto 0.2 K/mm3 (0-0.3); Eosinophils Percent Auto 2.4 % (0-4.4); Hematocrit 44.2 % (42.0-52.0); Immature Granulocyte Absolute 0.06 K/mm3 (0.00-0.031); Immature Granulocyte Percent A 0.6 % (0-0.5); Lymphocytes Absolute Auto 1.55 K/mm3 (0.9-3.2); Lymphocytes Percent Auto 15.9 % (18.3-44.2); Mean Corpuscular HGB Conc 33.9 g/dl (32-36); Mean Corpuscular Hemoglobin 28.9 pg (26-34); Mean Corpuscular Volume 85.2 fl (80-100); Mean Platelet Volume 9.8 fl (7.4-10.4); Monocytes Absolute Auto 1.1 K/mm3 (0.1-0.6); Monocytes Percent Auto 11.6 % (2.6-8.5); Neutrophils Absolute Auto 6.7 K/mm3 (1.3-6.7); Neutrophils Percent Auto 68.9 % (45.5-73.1); Platelet Count Result 340 k/mm3 (150-375); Red Blood Count 5.19 M/mm3 (4.6-6.20); Red Cell Distribution Width 12.7 % (11.5-14.5); White Blood Count 9.8 K/mm3 (4.5-10.0)
[2021-02-26 13:43] LABS: Glucose Point of Care 111 (65-105)
[2021-02-26 13:45] VITALS: BP 126/71; PULSE 68; RESP 18; TEMP 36.1; O2SAT 96
[2021-02-26] MEDS: ATORVASTATIN 40 MG TABLET 80 MG PO (21:00)
[2021-02-26 21:20] VITALS: BP 137/68; PULSE 64; RESP 16; TEMP 36.4; O2SAT 97
[2021-02-27 06:00] VITALS: BP 125/73; PULSE 69; RESP 16; TEMP 36.3; O2SAT 98
[2021-02-27] MEDS: DOCUSATE SODIUM 100 MG CAPSULE PO ×2 (08:33→20:54)
[2021-02-27] MEDS: ACETAMINOPHEN 500 MG TABLET 1000 MG PO ×2 (08:33→12:04)
[2021-02-27] MEDS: GABAPENTIN 300 MG CAPSULE PO ×3 (08:33→17:39)
[2021-02-27] MEDS: HEPARIN SODIUM 5,000 UNITS/ML VIAL 5000 UNITS SUB-Q ×2 (08:33→20:54)
[2021-02-27] MEDS: ASPIRIN 81 MG CHEWABLE TABLET PO (08:33)
[2021-02-27] MEDS: lisinopriL 20 MG TABLET 40 MG PO (08:34)
[2021-02-27] MEDS: polyethylene glycoL 3350 17 GM POWD.PACK PO (08:34)
[2021-02-27] MEDS: VENLAFAXINE HCL XR 75 MG CAP.ER.24H PO (08:34)
--- NOTE | 2021-02-27 09:47 | WPDNEURORHBP ---
Subjective Date/time seen: 02/27/21 09:47 Interval history: Left MCA infarct with right hemiplegia, dysarthria, aphasia, The patient is a 55-year-old male with past medical history of hyperlipidemia, anxiety, chronic pain, bilateral shoulder replacements, bilateral total hip replacements who presented to an outside hospital on 02/17/2021 with right-sided facial droop, right-sided weakness, and slurred speech. Initial NIHSS was 7. CT of the head showed hyperdense MCA. Patient was administered tPA and transferred to [facility] for further care. On arrival to [facility] NIHSS was 18. Repeat CT of the head showed a re- demonstrated left hyperdense MCA. CTA of the head and neck revealed a left ICA and the left M 1 occlusion. The patient underwent mechanical thrombectomy with TICI 2B recannulization performed by Dr. Phan Contreras.. The patient was noted to have a left ICA stenosis likely to be the origin of his occlusion. A lleft ICA dissection occurred during the procedure. Patient was given aspirin 300 mg x 1 MRI was obtained that showed a left MCA territory diffusion restriction along with punctate right hemispheric areas of diffusion restriction. No hemorrhage noted. Patient was noted to have a left fluid collection to the maxillary sinus and ENT follow-up with Dr. Menezes on 03/09/2021 at 11 for evaluation of sinusitis office #[phone] Therapy was initiated at the acute care facility and the patient transferred to us from [facility] on 02/22/21 Patient complaining of R shoulder pain. Patient needs reminders that the CVA has affected the RUE. Review of Systems Review of Systems: All systems reviewed & are unremarkable except as noted in HPI and below ROS unobtainable: Yes unobtainable due to mental status ( patient has significant aphasia and responses are not accurate) Functional Status Ambulation Ability Ability to Ambulate 10 Feet: Contact Guard Ability to Ambulate 50 Feet With 2 Turns: Contact Guard Ability to Ambulate 150 Feet: Contact Guard Ambulation Assistive Devices: None Transfers Ability Ability to Transfer In/Out of Chair: Independent Exam Narrative: Exam Narrative: Left eye ptosis noted. External ocular muscles are intact. Neck is supple. Heart rate and rhythm is regular. Lungs are clear to auscultation. Abdomen is obese. Positive bowel sounds are noted. Left upper and left lower extremity strength are 5/5. Right upper extremity strength is 3+ and elicits pain with motion with fine motor dexterity deficits. Left lower extremity strength is 4/5. . Word finding deficits noted . Patient's speech is improving and is talking in 3-4 word sentences. Gait is waddling at CGA with no AD. Objective Data Vital Signs Vital Signs: Vital Signs - 24 hr 02/26/21 13:45 02/26/21 21:20 02/27/21 06:00 Temperature 36.1 C L 36.4 C L 36.3 C L Pulse Rate 68 64 69 Respiratory Rate 18 16 16 Blood Pressure 126/71 137/68 125/73 Pulse Oximetry 96 97 98 Intake/Output Intake/Output: Intake & Output 02/24/21 02/25/21 02/26/21 02/27/21 23:59 23:59 23:59 23:59 Intake Total 460 1320 1200 120 Balance 460 1320 1200 120 Meds/Results Medications: Active Medications Generic Name Dose Route Start Last Admin Trade Name Freq PRN Reason Stop Dose Admin Acetaminophen 1,000 mg 02/24/21 08:00 02/27/21 08:33 Acetaminophen 500 Mg Tablet PO 1,000 mg 0800,1200 GENARO Administration Acetaminophen 1,000 mg 02/23/21 16:12 02/26/21 20:58 Acetaminophen 500 Mg Tablet PO 1,000 mg Q6H PRN Administration Mild Pain (1-3) or Fever Aspirin 81 mg 02/23/21 09:00 02/27/21 08:33 Aspirin 81 Mg Chewable Tablet PO 03/25/21 09:01 81 mg DAILY GENARO Administration Atorvastatin Calcium 80 mg 02/22/21 21:00 02/26/21 21:00 Atorvastatin 40 Mg Tablet PO 80 mg HS GENARO Administration Bisacodyl 10 mg 02/22/21 22:31 02/22/21 23:12 Bisacodyl 10 Mg Suppository RECTAL
--- NOTE | 2021-02-27 12:52 | PCDIET ---
Nutrition Follow-Up Complete: Nutrition Diagnosis: Suboptimal oral intake related to decreased appetite and food preferences as evidenced by patient statements and average of 50% recorded intake since admission. Nutrition Goal: Patient to consume 75% of meals or greater. Goal in progress. Average intake since 02/24/21 has been 57% of recorded meals. Diet is heart healthy, minced and moist with TID supplements (Ensure mixed with Frozen Nutritional Treat). Patient reports taking this supplement, though nursing reports patient did not take it this morning. Nursing to encourage intake of meals/supplements. Last recorded weight is 87.9 kg which is down from last review. Bowel Motility: Last documented BM on 02/26/21. Labs Reviewed: Glu (111) Meds Noted: Lipitor, Colace, Lisinopril, Miralax, Senna Additional Notes: No skin breakdown documented. Will continue to monitor with same goal. Nutrition Monitoring and Evaluation: Follow up in 5 days.
[2021-02-27 14:00] VITALS: BP 122/68; PULSE 74; RESP 20; TEMP 36.3; O2SAT 100
[2021-02-27 20:00] VITALS: PULSE 52; RESP 16; O2SAT 95
[2021-02-27] MEDS: ATORVASTATIN 40 MG TABLET 80 MG PO (20:54)
[2021-02-27 21:12] VITALS: BP 137/70; PULSE 52; RESP 16; TEMP 36.6; O2SAT 95
[2021-02-28 06:00] VITALS: BP 118/66; PULSE 69; RESP 16; TEMP 36.7; O2SAT 97
[2021-02-28] MEDS: HEPARIN SODIUM 5,000 UNITS/ML VIAL 5000 UNITS SUB-Q (07:42)
[2021-02-28] MEDS: GABAPENTIN 300 MG CAPSULE PO ×3 (07:43→18:07)
[2021-02-28] MEDS: ASPIRIN 81 MG CHEWABLE TABLET PO (07:43)
[2021-02-28] MEDS: ACETAMINOPHEN 500 MG TABLET 1000 MG PO ×2 (07:43→12:26)
[2021-02-28] MEDS: DOCUSATE SODIUM 100 MG CAPSULE PO ×2 (07:43→20:51)
[2021-02-28] MEDS: VENLAFAXINE HCL XR 75 MG CAP.ER.24H PO (07:44)
[2021-02-28] MEDS: lisinopriL 20 MG TABLET 40 MG PO (07:44)
[2021-02-28] MEDS: polyethylene glycoL 3350 17 GM POWD.PACK PO (07:44)
--- NOTE | 2021-02-28 10:41 | WPDNEURORHBP ---
Subjective Date/time seen: 02/28/21 10:41 Interval history: Left MCA infarct with right hemiplegia, dysarthria, aphasia, The patient is a 55-year-old male with past medical history of hyperlipidemia, anxiety, chronic pain, bilateral shoulder replacements, bilateral total hip replacements who presented to an outside hospital on 02/17/2021 with right-sided facial droop, right-sided weakness, and slurred speech. Initial NIHSS was 7. CT of the head showed hyperdense MCA. Patient was administered tPA and transferred to [facility] for further care. On arrival to [facility] NIHSS was 18. Repeat CT of the head showed a re- demonstrated left hyperdense MCA. CTA of the head and neck revealed a left ICA and the left M 1 occlusion. The patient underwent mechanical thrombectomy with TICI 2B recannulization performed by Dr. Phan Contreras.. The patient was noted to have a left ICA stenosis likely to be the origin of his occlusion. A lleft ICA dissection occurred during the procedure. Patient was given aspirin 300 mg x 1 MRI was obtained that showed a left MCA territory diffusion restriction along with punctate right hemispheric areas of diffusion restriction. No hemorrhage noted. Patient was noted to have a left fluid collection to the maxillary sinus and ENT follow-up with Dr. Menezes on 03/09/2021 at 11 for evaluation of sinusitis office #[phone] Therapy was initiated at the acute care facility and the patient transferred to us from [facility] on 02/22/21 Patient with minimal complaints of RUE pain. Patient states that he is sleeping well Review of Systems Review of Systems: All systems reviewed & are unremarkable except as noted in HPI and below ROS unobtainable: Yes unobtainable due to mental status ( patient has significant aphasia and responses are not accurate) Functional Status Ambulation Ability Ability to Ambulate 10 Feet: Independent Ability to Ambulate 50 Feet With 2 Turns: Independent Ability to Ambulate 150 Feet: Contact Guard Ambulation Assistive Devices: None Transfers Ability Ability to Transfer In/Out of Chair: Standby Assistance Exam Narrative: Exam Narrative: Left eye ptosis better this morning. Ptosis worsens with fatigue. External ocular muscles are intact. Neck is supple. Heart rate and rhythm is regular. Lungs are clear to auscultation. Abdomen is obese. Positive bowel sounds are noted. Left upper and left lower extremity strength are 5/5. Right upper extremity strength is 3+ to 4- and no pain noted with ROM . Left lower extremity strength is 4/5. . Word finding deficits noted . Patient's speech is improving and is talking in 3-4 word sentences. Objective Data Vital Signs Vital Signs: Vital Signs - 24 hr 02/27/21 14:00 02/27/21 20:00 02/27/21 21:12 Temperature 36.3 C L 36.6 C Pulse Rate 74 52 L 52 L Respiratory Rate 20 16 16 Blood Pressure 122/68 137/70 Pulse Oximetry 100 95 95 02/28/21 06:00 Temperature 36.7 C Pulse Rate 69 Respiratory Rate 16 Blood Pressure 118/66 Pulse Oximetry 97 Intake/Output Intake/Output: Intake & Output 02/25/21 02/26/21 02/27/21 02/28/21 23:59 23:59 23:59 23:59 Intake Total 1320 1200 600 240 Balance 1320 1200 600 240 Meds/Results Medications: Active Medications Generic Name Dose Route Start Last Admin Trade Name Woodyq PRN Reason Stop Dose Admin Acetaminophen 1,000 mg 02/24/21 08:00 02/28/21 07:43 Acetaminophen 500 Mg Tablet PO 1,000 mg 0800,1200 GENARO Administration Acetaminophen 1,000 mg 02/23/21 16:12 02/26/21 20:58 Acetaminophen 500 Mg Tablet PO 1,000 mg Q6H PRN Administration Mild Pain (1-3) or Fever Aspirin 81 mg 02/23/21 09:00 02/28/21 07:43 Aspirin 81 Mg Chewable Tablet PO 03/25/21 09:01 81 mg DAILY GENARO Administration Atorvastatin Calcium 80 mg 02/22/21 21:00 02/27/21 20:54 Atorvastatin 40 Mg Tablet PO 80 mg HS GENARO Administration Bisacodyl 10 mg
[2021-02-28 14:00] VITALS: BP 123/73; PULSE 73; RESP 18; TEMP 36.6; O2SAT 100
[2021-02-28] MEDS: ATORVASTATIN 40 MG TABLET 80 MG PO (20:51)
[2021-02-28 22:00] VITALS: BP 129/65; PULSE 67; RESP 16; TEMP 36.9; O2SAT 98
[2021-03-01 05:46] VITALS: BP 125/64; PULSE 66; RESP 16; TEMP 37.2; O2SAT 98
[2021-03-01] MEDS: ACETAMINOPHEN 500 MG TABLET 1000 MG PO ×2 (07:54→12:09)
[2021-03-01] MEDS: GABAPENTIN 300 MG CAPSULE PO ×3 (07:54→17:15)
[2021-03-01] MEDS: ASPIRIN 81 MG CHEWABLE TABLET PO (07:55)
[2021-03-01] MEDS: VENLAFAXINE HCL XR 75 MG CAP.ER.24H PO (07:56)
--- NOTE | 2021-03-01 09:23 | RPD ---
Addendum entered by Patricia Foley 03/03/21 14:35: The patient was reviewed 02/24/2021 at 10:30AM. Due to technical issues it was not entered into computer until 03/01/2021. Original Note: INDIVIDUALIZED PLAN OF CARE FOR [place] Brief Synthesis of Pre-Admission Screen, Post-Admission Evaluation and Therapy Evaluations: The patient presents to rehab with a left MCA stroke. Comorbidities include Left MCA syndrome, left ICA/MCA occlusion, right hemiplegia, tPA administration, status post mechanical thrombectomy with TICI 2 B recanalization, aphasia, dysphagia, hypertension, and hyperlipidemia. The complexity of the patient's medical management, nursing, and therapy needs require an inpatient rehab hospital stay with a physician-led interdisciplinary team approach. The patient?s needs will be best met in an intensive program vs. at a lower level of care. The patient requires physician services for medical oversight and coordination of care. Emotional needs will be monitored as depression is a common sequelae of stroke. The patient needs physician monitoring and treatment of hypertension, monitoring for adverse reactions to new medications, monitoring for infection, and pain control. The patient requires nursing services for frequent neuro checks, anticoagulation therapy, medication management and education, pressure relief and skin care management, monitoring of labs, and fall/safety precautions. Deficits include: ADLs, Balance, Cognition, Endurance, Family Training/Education, Mobility, Pain Management, ROM, Safety, Speech, Strength, Swallowing, and Transfers. Angle Furnaceman/Case Management for: Discharge Planning and Patient/Family Counseling Physical Therapy: 5 days per week for 30 minutes. Treatments may include: Therapeutic Exercise, Gait Training, Neuromuscular Re-education, Transfer Training, Community Reintegration, Bed Mobility, Patient/Family Education, Wheelchair Mobility Group Therapy/Concurrent Therapy Rationales: -Improve attention span during functional activities in a distracted environment. -Enhance problem solving and/or adequate judgment skills during functional activities in a distracted environment. -Promote increased safety awareness in a distracted environment to reduce fall risk with functional tasks, transfers, and ambulation to allow a more safe, self-sufficient return to the home environment. -Improve dynamic balance skills to promote safety and independence with functional activities in a distracted environment for maximum gain. Occupational Therapy: 5 days per week for 75 minutes. Treatments may include: Therapeutic Exercise, Therapeutic Activity, Cognitive Training, Self-Care Transfer Training, Community Reintegration, Home Management, Patient/Family Education, Wheelchair Mobility Training, Energy Conservation Training Group Therapy/Concurrent Therapy Rationales: -Allow therapist to observe and teach generalization and carry-over of skills learned in individual therapy. -Enhance problem solving and sequencing skills during therapeutic activities in a distracted environment. -Promote increased safety awareness in a realistic setting to reduce fall risk with functional tasks due to visual and verbal distractions. -Increase functional level with ADLs, ADL transfers and use of adaptive equipment through therapeutic activities with others while promoting safety to allow a more safe, self-sufficient return home. Speech Therapy: 5 days per week for 75 minutes. Treatments may include: Dysphasia Therapy, Speech/Language/Communication Therapy, Cognitive Training, Patient/Family Education Group Therapy/Concurrent Therapy - Rationale: -Allow therapist to observe and teach generalization and carry-over of skills learned in individual therapy. -Improve comprehension skills with complex or abstract ideas through discussion in a realistic setting. -Enhance problem solving skills with complex issues during activities in a distracte
[2021-03-01 14:00] VITALS: BP 141/73; PULSE 68; RESP 18; TEMP 36.6; O2SAT 99
--- NOTE | 2021-03-01 14:27 | WPDNEURORHBP ---
Subjective Date/time seen: 03/01/21 14:27 Interval history: Left MCA infarct with right hemiplegia, dysarthria, aphasia, The patient is a 55-year-old male with past medical history of hyperlipidemia, anxiety, chronic pain, bilateral shoulder replacements, bilateral total hip replacements who presented to an outside hospital on 02/17/2021 with right-sided facial droop, right-sided weakness, and slurred speech. Initial NIHSS was 7. CT of the head showed hyperdense MCA. Patient was administered tPA and transferred to [facility] for further care. On arrival to [facility] NIHSS was 18. Repeat CT of the head showed a re- demonstrated left hyperdense MCA. CTA of the head and neck revealed a left ICA and the left M 1 occlusion. The patient underwent mechanical thrombectomy with TICI 2B recannulization performed by Dr. Phan Contreras.. The patient was noted to have a left ICA stenosis likely to be the origin of his occlusion. A lleft ICA dissection occurred during the procedure. Patient was given aspirin 300 mg x 1 MRI was obtained that showed a left MCA territory diffusion restriction along with punctate right hemispheric areas of diffusion restriction. No hemorrhage noted. Patient was noted to have a left fluid collection to the maxillary sinus and ENT follow-up with Dr. Menezes on 03/09/2021 at 11 for evaluation of sinusitis office #[phone] Therapy was initiated at the acute care facility and the patient transferred to us from [facility] on 02/22/21 Aba was seen during speech therapy. Aba was unable to identify what therapist he was working with. He was given the selection of PT, OT, and speech. Patient appears to have some visual deficits with possible blurred vision. Patient is consciously closing the left eye during my exam. At times there is left ptosis which is involuntary. Review of Systems Review of Systems: All systems reviewed & are unremarkable except as noted in HPI and below Functional Status Ambulation Ability Ability to Ambulate 10 Feet: Independent Ability to Ambulate 50 Feet With 2 Turns: Independent Ability to Ambulate 150 Feet: Independent Ambulation Assistive Devices: None Transfers Ability Ability to Transfer In/Out of Chair: Independent Exam Narrative: Exam Narrative: Patient is shutting left eye on purpose during this exam. External ocular muscles are intact. Neck is supple. Heart rate and rhythm is regular. Lungs are clear to auscultation. Abdomen is obese. Positive bowel sounds are noted. Left upper and left lower extremity strength are 5/5. Right upper extremity strength is 3+ to 4- and no pain noted with ROM . Left lower extremity strength is 4/5. . Word finding deficits noted . Patient's speech is improving and is talking in 3-4 word sentences. Objective Data Vital Signs Vital Signs: Vital Signs - 24 hr 02/28/21 22:00 03/01/21 05:46 03/01/21 14:00 Temperature 36.9 C 37.2 C 36.6 C Pulse Rate 67 66 68 Respiratory Rate 16 16 18 Blood Pressure 129/65 125/64 141/73 H Pulse Oximetry 98 98 99 Intake/Output Intake/Output: Intake & Output 02/26/21 02/27/21 02/28/21 03/01/21 23:59 23:59 23:59 23:59 Intake Total 1200 600 720 480 Balance 1200 600 720 480 Meds/Results Medications: Active Medications Generic Name Dose Route Start Last Admin Trade Name Woodyq PRN Reason Stop Dose Admin Acetaminophen 1,000 mg 02/24/21 08:00 03/01/21 12:09 Acetaminophen 500 Mg Tablet PO 1,000 mg 0800,1200 GENARO Administration Acetaminophen 1,000 mg 02/23/21 16:12 02/26/21 20:58 Acetaminophen 500 Mg Tablet PO 1,000 mg Q6H PRN Administration Mild Pain (1-3) or Fever Aspirin 81 mg 02/23/21 09:00 03/01/21 07:55 Aspirin 81 Mg Chewable Tablet PO 03/25/21 09:01 81 mg DAILY GENARO Administration Atorvastatin Calcium 80 mg 02/22/21 21:00 02/28/21 20:51 Atorvastatin 40 Mg Tablet PO 80 mg HS GENARO Administration Bisacodyl
[2021-03-01] MEDS: ATORVASTATIN 40 MG TABLET 80 MG PO (20:20)
[2021-03-01] MEDS: DOCUSATE SODIUM 100 MG CAPSULE PO (20:20)
[2021-03-01] MEDS: ONDANSETRON HCL ODT 4 MG TABLET PO (21:48)
[2021-03-01 22:00] VITALS: BP 140/73; PULSE 77; RESP 16; TEMP 36.8; O2SAT 100
[2021-03-02 05:24] LABS: Basophils Percent Auto 0.4 % (0.2-1.2); Eosinophils Absolute Auto 0.1 K/mm3 (0-0.3); Eosinophils Percent Auto 0.9 % (0-4.4); Hemoglobin 15.1 g/dL (14.0-18.0); Immature Granulocyte Absolute 0.04 K/mm3 (0.00-0.031); Immature Granulocyte Percent A 0.4 % (0-0.5); Lymphocytes Absolute Auto 1.13 K/mm3 (0.9-3.2); Lymphocytes Percent Auto 11.2 % (18.3-44.2); Mean Corpuscular HGB Conc 34.3 g/dl (32-36); Mean Corpuscular Volume 87.3 fl (80-100); Mean Platelet Volume 10.1 fl (7.4-10.4); Monocytes Absolute Auto 0.8 K/mm3 (0.1-0.6); Monocytes Percent Auto 8.1 % (2.6-8.5); Platelet Count Result 319 k/mm3 (150-375); Red Blood Count 5.04 M/mm3 (4.6-6.20); Red Cell Distribution Width 12.9 % (11.5-14.5); White Blood Count 10.1 K/mm3 (4.5-10.0)
[2021-03-02 05:28] LABS: Alanine Aminotransferase 50 U/L (4-50); Albumin Level 4.1 g/dL (3.5-5.1); Alkaline Phosphatase 59 U/L (38-126); Anion Gap 7 mmol/L (8-16); Aspartate Amino Transferase 46 U/L (17-59); Bilirubin,Total 0.4 mg/dL (0.2-1.3); Blood Urea Nitrogen 18 mg/dL (9-20); Calcium 8.6 mg/dL (8.4-10.2); Carbon Dioxide 25 mmol/L (22-30); Chloride 103 mmol/L (98-107); Estimated CRCL calculation 107 ml/min; Estimated Glomerular Filt Rate > 60; Glucose 115 mg/dL (75-110); Potassium 4.2 mmol/L (3.4-5.0); Sodium 135 mmol/L (137-145)
[2021-03-02 05:46] VITALS: BP 158/78; PULSE 65; RESP 16; TEMP 36.6; O2SAT 97
[2021-03-02] MEDS: ACETAMINOPHEN 500 MG TABLET 1000 MG PO ×2 (10:01→12:30)
[2021-03-02] MEDS: VENLAFAXINE HCL XR 75 MG CAP.ER.24H PO (10:01)
[2021-03-02] MEDS: ASPIRIN 81 MG CHEWABLE TABLET PO (10:01)
[2021-03-02] MEDS: GABAPENTIN 300 MG CAPSULE PO ×3 (10:01→17:41)
[2021-03-02 12:15] VITALS: BP 149/76; PULSE 68; RESP 18; TEMP 36.6; O2SAT 100
--- NOTE | 2021-03-02 12:20 | PCDIET ---
Nutrition Follow-Up Complete: Nutrition Diagnosis: Suboptimal oral intake related to decreased appetite and food preferences as evidenced by patient statements and average of 50% recorded intake since admission. Nutrition Goal: Patient to consume 75% of meals or greater. Goal met. Patient has consumed an average of 75% of meals since 02/28/21 on regular diet. Reports he is not drinking supplements and does not want to try other supplements. RN confirmed patient is refusing supplements. Discussed with MD; verbal order to discontinue supplements obtained. Last recorded weight is 87.9 kg. Recommend obtaining new weight. Bowel Motility: Last documented BM on 02/26/21. Patient has multiple scheduled and prn medications ordered for this. Labs Reviewed: Glu (115), Na (135) Meds Noted: Lipitor, Colace, Lisinopril Additional Notes: No documented skin breakdown. Will continue to monitor with same goal. Nutrition Monitoring and Evaluation: Follow up in 7 days.
[2021-03-02 14:00] VITALS: BP 151/69; PULSE 62; RESP 22; TEMP 36.8; O2SAT 97
--- NOTE | 2021-03-02 14:23 | WPDNEURORHBP ---
Subjective Date/time seen: 03/02/21 14:23 Interval history: Left MCA infarct with right hemiplegia, dysarthria, aphasia, The patient is a 55-year-old male with past medical history of hyperlipidemia, anxiety, chronic pain, bilateral shoulder replacements, bilateral total hip replacements who presented to an outside hospital on 02/17/2021 with right-sided facial droop, right-sided weakness, and slurred speech. Initial NIHSS was 7. CT of the head showed hyperdense MCA. Patient was administered tPA and transferred to [facility] for further care. On arrival to [facility] NIHSS was 18. Repeat CT of the head showed a re- demonstrated left hyperdense MCA. CTA of the head and neck revealed a left ICA and the left M 1 occlusion. The patient underwent mechanical thrombectomy with TICI 2B recannulization performed by Dr. Phan Contreras.. The patient was noted to have a left ICA stenosis likely to be the origin of his occlusion. A lleft ICA dissection occurred during the procedure. Patient was given aspirin 300 mg x 1 MRI was obtained that showed a left MCA territory diffusion restriction along with punctate right hemispheric areas of diffusion restriction. No hemorrhage noted. Patient was noted to have a left fluid collection to the maxillary sinus and ENT follow-up with Dr. Menezes on 03/09/2021 at 11 for evaluation of sinusitis office #[phone] Therapy was initiated at the acute care facility and the patient transferred to us from [facility] on 02/22/21 Patient with left eye closed. Patient had emesis last night. I was notified in the morning. Patient unable to voluntary open eye. This is a new symptom. Patient voices no weakness, loss of sensation. Stat CT scan ordered. Finding L basal ganglia infarct acute. Review of Systems Review of Systems: All systems reviewed & are unremarkable except as noted in HPI and below Functional Status Ambulation Ability Ability to Ambulate 10 Feet: Independent Ability to Ambulate 50 Feet With 2 Turns: Independent Ability to Ambulate 150 Feet: Independent Ambulation Assistive Devices: None Transfers Ability Ability to Transfer In/Out of Chair: Independent Exam Narrative: Exam Narrative: Left eye ptosis is noted. Speech is actually clear and stronger. Patient is forming more completed to sentences. Heart rate and rhythm is regular lungs are clear abdomen is soft nontender. Transfer and gait are independent . Endurance is better. Objective Data Vital Signs Vital Signs: Vital Signs - 24 hr 03/01/21 22:00 03/02/21 05:46 03/02/21 12:15 Temperature 36.8 C 36.6 C 36.6 C Pulse Rate 77 65 68 Respiratory Rate 16 16 18 Blood Pressure 140/73 158/78 H 149/76 H Pulse Oximetry 100 97 100 Intake/Output Intake/Output: Intake & Output 02/27/21 02/28/21 03/01/21 03/02/21 23:59 23:59 23:59 23:59 Intake Total 600 720 480 240 Balance 600 720 480 240 Meds/Results Medications: Active Medications Generic Name Dose Route Start Last Admin Trade Name Freq PRN Reason Stop Dose Admin Acetaminophen 1,000 mg 02/24/21 08:00 03/02/21 12:30 Acetaminophen 500 Mg Tablet PO 1,000 mg 0800,1200 GENARO Administration Acetaminophen 1,000 mg 02/23/21 16:12 02/26/21 20:58 Acetaminophen 500 Mg Tablet PO 1,000 mg Q6H PRN Administration Mild Pain (1-3) or Fever Aspirin 81 mg 02/23/21 09:00 03/02/21 10:01 Aspirin 81 Mg Chewable Tablet PO 03/25/21 09:01 81 mg DAILY GENARO Administration Atorvastatin Calcium 80 mg 02/22/21 21:00 03/01/21 20:20 Atorvastatin 40 Mg Tablet PO 80 mg HS GENARO Administration Bisacodyl 10 mg 02/22/21 22:31 02/22/21 23:12 Bisacodyl 10 Mg Suppository RECTAL 10 mg QAM PRN Administration Constipation Docusate Sodium 100 mg 02/22/21 21:00 03/02/21 10:02 Docusate Sodium 100 Mg Capsule PO Not Given Q12HR GENARO Gabapentin 300 mg 02/22/21 17:00 03/02/21 12:30 Gabapentin 300 Mg Caps
[2021-03-02] MEDS: ONDANSETRON HCL ODT 4 MG TABLET PO (18:46)
[2021-03-02] MEDS: DOCUSATE SODIUM 100 MG CAPSULE PO (20:50)
[2021-03-02] MEDS: ATORVASTATIN 40 MG TABLET 80 MG PO (20:50)
[2021-03-02 21:33] VITALS: BP 138/81; PULSE 71; RESP 16; TEMP 36.2; O2SAT 99
[2021-03-03 06:00] VITALS: BP 147/84; PULSE 63; RESP 16; TEMP 36.1; O2SAT 95
[2021-03-03] MEDS: GABAPENTIN 300 MG CAPSULE PO ×3 (08:40→18:29)
[2021-03-03] MEDS: ACETAMINOPHEN 500 MG TABLET 1000 MG PO ×2 (08:40→13:40)
[2021-03-03] MEDS: ASPIRIN 81 MG CHEWABLE TABLET PO (08:40)
[2021-03-03] MEDS: DOCUSATE SODIUM 100 MG CAPSULE PO ×2 (08:40→20:24)
[2021-03-03] MEDS: polyethylene glycoL 3350 17 GM POWD.PACK PO (08:40)
[2021-03-03] MEDS: VENLAFAXINE HCL XR 75 MG CAP.ER.24H PO (08:41)
[2021-03-03 14:00] VITALS: BP 152/72; PULSE 68; RESP 18; TEMP 37; O2SAT 98
--- NOTE | 2021-03-03 14:16 | WPDNEURCNPN ---
Consult date: 03/03/21 Time Seen: 04:00 HPI: Sha Mills is a 55 year old male has been admitted to the acute rehab of [facility] with the primary rehab impairment category of his stroke with right-sided body involvement in addition to the history of 1. Hyperlipidemia 2. Anxiety 3. Chronic number Scharff 4 bilateral shoulder replacement 5. Bilateral total hip replacement and 6. The present symptomatology of right-sided facial droop right-sided weakness and slurred speech reportedly patient had the tPA when he was transferred to sent to [facility] from the local institution his initial CTA of the head and neck reveals left ICA and left M1 occlusion requiring mechanical thrombectomy he was also found to have left ICA stenosis and left ICA dissection did occur during procedure he received aspirin 300 mg daily subsequent mm MRI documented left MCA territory diffusion restriction with punctate right hemispheric area of diffusion restriction but no bleed. Neuro consultation was requested obtain mainly because the left-sided ptosis with anisocoria and restriction of the gaze , considering the possibility of left 3rd nerve involvement on the basis of vascular occlusion versus the possibility of the brainstem stroke MRI of the brain and brainstem was obtained which documented subacute infarct involving the left temporal lobe, left basal ganglia, and posterior right frontal lobe with small area of microhemorrhage in the left lentiform nucleus, CTA was also obtained which documented to be routed lobe area in the left lentiform nucleus with total occlusion of left internal carotid artery with reconstitution in the cavernous segment. His clinical symptomatology is related to the left 3rd nerve involvement as well on the clinical basis and he will benefit from the ongoing therapy and further care according PMFSH Past Medical History Medical History (Updated 03/02/21 @ 14:28 by Yusra Hood DO) Anxiety Chronic pain syndrome Hyperlipidemia Surgical History Surgical History (Updated 02/22/21 @ 15:44 by Yusra Hood DO) History of bilateral hip replacements History of reverse total replacement of both shoulders Social History Social History (Updated 02/22/21 @ 15:50 by Yusra Hood DO) Social History: patient lives with his spouse in a 1 level home with 1 step to enter. Prior to illness patient was completely independent without assistive device. Patient has had bilateral shoulder replacements and bilateral hip replacements with revision x2. Patient walks with a limp at baseline. Patient's , Mari, is available to assist the patient following rehab if necessary. 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 Gender identity (if verbalized by the patient): Male Sexual Orientation (if Verbalized by the Patient): Straight or Heterosexual Spiritual care concerns: No Meds Home Medications and Allergies Home Medications Medication Instructions Recorded Confirmed Type Effexor XR 75 mg PO DAILY 02/22/21 02/22/21 History aspirin 81 mg PO DAILY 02/22/21 02/22/21 History atorvastatin 80 mg PO HS 02/22/21 02/22/21 History gabapentin 300 mg PO TID 02/22/21 02/22/21 History lisinopril 40 mg PO DAILY 02/22/21 02/22/21 History Allergies Allergy/AdvReac Type Severity Reaction Status Date / Time CODEINE Allergy Unknown Uncoded 05/04/03 11:30 NKFA Allergy Unknown Uncoded 05/04/03 11:30 Vital Signs Vital Signs - 24 hr 03/02/21 21:33 03/03/21 06:00 Temperature 36.2 C L 36.1 C L Pulse Rate 71 63 Respiratory Rate 16 16 Blood Pressure 138/81 147/84 H Pulse Oximetry 99 95
--- NOTE | 2021-03-03 15:52 | WPDNEURORHBP ---
Subjective Date/time seen: 03/03/21 15:52 Interval history: Left MCA infarct with right hemiplegia, dysarthria, aphasia, The patient is a 55-year-old male with past medical history of hyperlipidemia, anxiety, chronic pain, bilateral shoulder replacements, bilateral total hip replacements who presented to an outside hospital on 02/17/2021 with right-sided facial droop, right-sided weakness, and slurred speech. Initial NIHSS was 7. CT of the head showed hyperdense MCA. Patient was administered tPA and transferred to [facility] for further care. On arrival to [facility] NIHSS was 18. Repeat CT of the head showed a re- demonstrated left hyperdense MCA. CTA of the head and neck revealed a left ICA and the left M 1 occlusion. The patient underwent mechanical thrombectomy with TICI 2B recannulization performed by Dr. Phan Contreras.. The patient was noted to have a left ICA stenosis likely to be the origin of his occlusion. A lleft ICA dissection occurred during the procedure. Patient was given aspirin 300 mg x 1 MRI was obtained that showed a left MCA territory diffusion restriction along with punctate right hemispheric areas of diffusion restriction. No hemorrhage noted. Patient was noted to have a left fluid collection to the maxillary sinus and ENT follow-up with Dr. Menezes on 03/09/2021 at 11 for evaluation of sinusitis office #[phone] Therapy was initiated at the acute care facility and the patient transferred to us from [facility] on 02/22/21 03/02/21Patient with left eye closed. Patient had emesis last night. I was notified in the morning. Patient unable to voluntary open eye. This is a new symptom. Patient voices no weakness, loss of sensation. Stat CT scan ordered. Finding L basal ganglia infarct acute. Dr. Whitlock was consulted 03/03/21 CTA of the brain demonstrated subacute infarcts involving the left temporal lobe, left basal ganglia, posterior right frontal lobe. Small area of subacute hemorrhage in the infarction in the left lentiform nucleus. Patient also demonstrates total occlusion of left internal carotid artery with reconstitution the cavernous segment. MRI revealed subacute infarctions involving the left temporal lobe, left basal ganglia, and posterior right frontal lobe with small areas of microhemorrhage in the left lentiform nucleus. neurology was aware of above findings. No change in treatment at this time. Review of Systems Review of Systems: All systems reviewed & are unremarkable except as noted in HPI and below ROS unobtainable: Yes unobtainable due to mental status ( patient has significant aphasia and responses are not accurate) Functional Status Ambulation Ability Ability to Ambulate 10 Feet: Independent Ability to Ambulate 50 Feet With 2 Turns: Independent Ability to Ambulate 150 Feet: Independent Ambulation Assistive Devices: None Transfers Ability Ability to Transfer In/Out of Chair: Independent Exam Narrative: Exam Narrative: Left eye ptosis is noted. Speech is actually clear and stronger. Patient is forming more completed to sentences. Heart rate and rhythm is regular lungs are clear abdomen is soft nontender. Transfer and gait are independent . Endurance is better. Objective Data Vital Signs Vital Signs: Vital Signs - 24 hr 03/02/21 21:33 03/03/21 06:00 03/03/21 14:00 Temperature 36.2 C L 36.1 C L 37.0 C Pulse Rate 71 63 68 Respiratory Rate 16 16 18 Blood Pressure 138/81 147/84 H 152/72 H Pulse Oximetry 99 95 98 Intake/Output Intake/Output: Intake & Output 02/28/21 03/01/21 03/02/21 03/03/21 23:59 23:59 23:59 23:59 Intake Total 720 480 240 240 Balance 720 480 240 240 Meds/Results Medications: Active Medications Generic Name Dose Route Start Last Admin Trade Name Freq PRN Reason Stop Dose Admin Acetaminophen 1,000 mg 02/24/21 08:00 03/03/21 13:40 Acetaminophen 500 Mg Tablet PO 1,000 mg 0800,1200 [facility] Administrati
[2021-03-03] MEDS: ATORVASTATIN 40 MG TABLET 80 MG PO (20:24)
[2021-03-03 22:00] VITALS: BP 157/81; PULSE 63; RESP 16; TEMP 36.6; O2SAT 95
[2021-03-04 05:43] VITALS: BP 129/74; PULSE 82; RESP 16; TEMP 36.3; O2SAT 99
[2021-03-04] MEDS: DOCUSATE SODIUM 100 MG CAPSULE PO (08:30)
[2021-03-04] MEDS: ACETAMINOPHEN 500 MG TABLET 1000 MG PO (08:30)
[2021-03-04] MEDS: ASPIRIN 81 MG CHEWABLE TABLET PO (08:30)
[2021-03-04] MEDS: VENLAFAXINE HCL XR 75 MG CAP.ER.24H PO (08:30)
[2021-03-04] MEDS: polyethylene glycoL 3350 17 GM POWD.PACK PO (08:30)
[2021-03-04] MEDS: GABAPENTIN 300 MG CAPSULE PO (08:30)
[2021-03-04 08:31] VITALS: BP 126/70
--- NOTE | 2021-03-04 09:00 | PM.DS ---
DS: Admitting Diagnosis Admitting Diagnosis Admitting Diagnosis: left middle cerebral artery infarct DS: Discharge Diagnosis Discharge Diagnosis (1) Infarction of left basal ganglia: Code(s): I63.9 - Cerebral infarction, unspecified Status: Acute Assessment and Plan: PATIENT WITH NEW ONSET OF LEFT PTOSIS. CT SCAN REVEALS NEW LEFT BASAL GANGLIA INFARCT. PATIENT IS ON ASPIRIN. IN A C YEAR, NEUROLOGIST, HAS BEEN CONSULT. ISREAL HAS BEEN NOTIFIED. DESPITE THESE FINDINGS. PATIENT ACTUALLY HAS PROGRESSED IN ALL PT OT AND SPEECH THERAPY SESSIONS TODAY. WE WILL WAIT DOCTOR IN A SEARS IMPRESSIONS. PATIENT WAS SCHEDULED TO BE DISCHARGED TOMORROW. (2) Cerebral infarction involving left middle cerebral artery: Code(s): I63.512 - Cerebral infarction due to unspecified occlusion or stenosis of left middle cerebral artery Status: Acute (3) Right hemiplegia: Code(s): G81.91 - Hemiplegia, unspecified affecting right dominant side Status: Acute (4) Aphasia: Code(s): R47.01 - Aphasia Status: Acute (5) Dysarthria: Code(s): R47.1 - Dysarthria and anarthria Status: Acute (6) HTN (hypertension): Code(s): I10 - Essential (primary) hypertension Status: Acute (7) Constipation: Code(s): K59.00 - Constipation, unspecified Status: Acute (8) Chronic pain syndrome: Code(s): G89.4 - Chronic pain syndrome Status: Acute (9) Anxiety: Code(s): F41.9 - Anxiety disorder, unspecified Status: Acute (10) Hyperlipidemia: Code(s): E78.5 - Hyperlipidemia, unspecified Status: Acute (11) DVT prophylaxis: Code(s): Z29.9 - Encounter for prophylactic measures, unspecified Status: Resolved DS: Summary Hospital Course Hospital Course: The etiologic diagnosis is left middle cerebral artery infarct I saw this patient [id number] on 02/22/2021 thru 03/04/21 The patient is a 55-year-old male with past medical history of hyperlipidemia, anxiety, chronic pain, bilateral shoulder replacements, bilateral total hip replacements who presented to an outside hospital on 02/17/2021 with right-sided facial droop, right-sided weakness, and slurred speech. Initial NIH SS was 7. CT of the head showed hyperdense MCA. Patient was administered tPA and transferred to [facility] for further care. On arrival to [facility] NIHSS was 18. Repeat CT of the head showed a re- demonstrated left hyperdense MCA. CTA of the head and neck revealed a left ICA and the left M 1 occlusion. The patient underwent mechanical thrombectomy with TI CI 2B recannulization performed by Dr. Phan Contreras.. The patient was noted to have a left ICA stenosis likely to be the origin of his occlusion. A lleft ICA dissection occurred during the procedure. Patient was given aspirin 300 mg x 1 MRI was obtained that showed a left MCA territory diffusion restriction along with punctate right hemispheric areas of diffusion restriction. No hemorrhage noted. Patient was noted to have a left fluid collection to the maxillary sinus and ENT follow-up with Dr. Menezes on 03/09/2021 at for evaluation of sinusitis office #[phone] Therapy was initiated at the acute care facility and the patient transferred to us from [facility] on 02/22/21 REHAB HOSPITAL COURSE; NEW ONSET OF L EYE PTOSIS WITH INABILITY TO OPEN. A STAT CT SCAN WAS OBTAINED WHICH SHOWED SUBTLE DECREASED ATTENUATION TO THE LEFT LENTIFORM NUCLEUS SUSPICIOUS FOR INFARCT BRAIN MRI REVEALED SUBACUTE INFARCTS INVOLVING THE LEFT TEMPORAL LOBE, LEFT BASAL GANGLIA, AND POSTERIOR RIGHT FRONTAL LOBE WITH SMALL AREAS OF MICROHEMORRHAGE IN THE LEFT LENTIFORM NUCLEUS. CT BRAIN ANGIOGRAPHY REVEALED SUBACUTE INFARCTS INVOLVING THE LEFT TEMPORAL LOBE, LEFT BASAL GANGLIA, AND POSTERIOR RIGHT FRONTAL LOBE. SMALL AREAS OF SUBACUTE HEMORRHAGE IN INFARCT IN THE LEFT LENTIFORM NUCLEUS.
== END 2021-03-04 09:55 | disposition home or self-care (01) | DRG 56 ==
PROVIDERS: Admitting Provider Physical Medicine & Rehabilitation; PCP Family Medicine; Visit Provider Physical Medicine & Rehabilitation
DX: I69.351 Hemiplegia and hemiparesis following cerebral infarction affecting right dominant side (principal); I63.9 Cerebral infarction, unspecified; I69.322 Dysarthria following cerebral infarction; I69.320 Aphasia following cerebral infarction; I69.392 Facial weakness following cerebral infarction; E78.5 Hyperlipidemia, unspecified; F41.9 Anxiety disorder, unspecified; G89.29 Other chronic pain; Z96.612 Presence of left artificial shoulder joint; Z96.611 Presence of right artificial shoulder joint; Z96.643 Presence of artificial hip joint, bilateral; K59.00 Constipation, unspecified; I69.398 Other sequelae of cerebral infarction; H53.40 Unspecified visual field defects; R11.10 Vomiting, unspecified; H02.402 Unspecified ptosis of left eyelid; Z87.891 Personal history of nicotine dependence
CPT/HCPCS: 36415; 70450; 70496; 70553; 73030; 74018; 80053; 82948; 85025; 85027; 92507; 92523; 92610; 97110; 97112; 97116; 97161; 97166; 97530; 97535; A9270; A9577; J1644; Q9967